=== PATIENT | male | born 1985 | race Caucasian/White ===

== ENCOUNTER 2016-04-05 16:15 | Emergency (ER) | payer SELFPAY ==
[2016-04-05 17:11] LABS: Hematocrit 51 % (42-52); Mean Corpuscular HGB Conc 34 g/dl (31-36); Mean Corpuscular Hemoglobin 30 pg (27-31); Mean Corpuscular Volume 90 fL (80-94); Mean Platelet Volume 9 um3 (7.4-10.4); Red Blood Count 5.63 10^6/ul (4.0-5.4); Red Cell Distribution Width 13 % (10.5-15); White Blood Count 6.7 10^3/ul (3.5-10.8)
[2016-04-05 17:24] LABS: Urine Bilirubin Negative (Negative); Urine Glucose Negative (Negative); Urine Nitrite Negative (Negative)
[2016-04-05 17:27] LABS: ALT 26 U/L (7-52); AST 21 U/L (13-39); Albumin 4.8 g/dL (3.2-5.2); Alkaline Phosphatase 65 U/L (34-104); Anion Gap 8 mmol/L (2-11); BUN/Creatinine Ratio 13.6 (8-20); Blood Urea Nitrogen 11 mg/dL (6-24); CO2 Carbon Dioxide 27 mmol/L (22-32); Calcium 9.9 mg/dL (8.6-10.3); Chloride 103 mmol/L (101-111); EGFR African American 143.9 (>60); EGFR Non-African American 111.9 (>60); Globulin 3.1 g/dL (2-4); Glucose 89 mg/dL (70-100); Potassium 3.5 mmol/L (3.5-5.0); Sodium 138 mmol/L (133-145); Total Protein 7.9 g/dL (6.4-8.9)
[2016-04-05 17:39] LABS: Acetaminophen < 15 mcg/mL; Alcohol < 10 mg/dL (<10); Salicylate < 2.50 mg/dL (<30)
[2016-04-05 17:39] LABS: Benzodiazepine Urine Screen None Detected (None Detect)
[2016-04-05 17:49] LABS: TSH (Thyroid Stimulating Horm) 1.33 mcIU/mL (0.34-5.60)
[2016-04-05 20:56] VITALS: BP 114/68
--- NOTE | 2016-04-06 12:47 | ED ---
I, Oh,Sobladeun, scribed for Xavier Liu MD on 04/05/16 at 1634 . Psychiatric Complaint - HPI Summary HPI Summary: This 30 y/o male presents to ED as 941 under police custody. Friend became concerned with his comment about "trouble getting out of bed" and how close he was to waterfall, and called law enforcement. Pt denies any SI or suicidal plan at the time of initial evaluation. Pt is current smoker and drinker. Pt also reports recent of father and that he has to greens picker the josé antonio of his father. Mother a year ago. Pt denies any known depression, and any other PMHx. - History Of Current Complaint Time Seen by Provider: 04/05/16 16:27 Hx Obtained From: Patient Onset/Duration: Gradual Onset Timing: Constant Severity Initially: Moderate Severity Currently: Moderate Character: Depressed Aggravating Factor(s): Recent Stress - father's recent Alleviating Factor(s): Nothing Associated Signs And Symptoms: Positive: Sleep Disturbance Related History: Negative For: Prior Psychiatric Issues Has Suicidal: Denies: Thoughts Has Homicidal: Denies: Thoughts PMH/Surg Hx/FS Hx/Imm Hx Previously Healthy: Yes - Pt denies any PMHx. - Family History Known Family History: Positive: Other - "my dad probably of broken heart" - Social History Alcohol Use: None Hx Substance Use: Yes Substance Use Type: Reports: Marijuana Hx Tobacco Use: No Smoking Status (MU): Never Smoked Tobacco Review of Systems Negative: Fever Positive: Depressed All Other Systems Reviewed And Are Negative: Yes Physical Exam - Summary Physical Exam Summary: VITAL SIGNS: Reviewed. GENERAL: Patient is a well developed and nourished male who is lying comfortable in the stretcher. Patient is not in any acute respiratory distress. HEAD AND FACE: No signs of trauma. No ecchymosis, hematomas or skull depressions. No sinus tenderness. EYES: PERRLA, EOMI x 2, No injected conjunctiva, no nystagmus. EARS: Hearing grossly intact. Ear canals and tympanic membranes are within normal limits. MOUTH: Oropharynx within normal limits. NECK: Supple, trachea is midline, no adenopathy, no JVD, no carotid bruit, no c- spine tenderness, neck with full ROM. CHEST: Symmetric, no tenderness at palpation LUNGS: Clear to auscultation bilaterally. No wheezing or crackles. CVS: Regular rate and rhythm, S1 and S2 present, no murmurs or gallops appreciated. ABDOMEN: Soft, non-tender. No signs of distention. No rebound no guarding, and no masses palpated. Bowel sounds are normal. EXTREMITIES: FROM in all major joints, no edema, no cyanosis or clubbing. NEURO: Alert and oriented x 3. No acute neurological deficits. Speech is normal and follows commands. SKIN: Dry and warm PSYCH: Depressed, quiet, denies any suicidal thoughts or plan. No homicidal thoughts or plan. No signs of psychosis or pressure speech. No tangential speech. Triage Information Reviewed: Yes Vital Signs On Initial Exam: Initial Vitals Temp Pulse Resp BP Pulse Ox 98.2 F 91 14 113/72 96 04/05/16 16:55 04/05/16 16:55 04/05/16 16:55 04/05/16 16:55 04/05/16 16:55 Vital Signs Reviewed: Yes Diagnostics - Vital Signs Vital Signs Temp Pulse Resp BP Pulse Ox 04/05/16 16:55 98.2 F 91 14 113/72 96 - Laboratory Result Diagrams: 04/05/16 14:50 04/05/16 14:50 Lab Statement: Any lab studies that have been ordered have been reviewed, and results considered in the medical decision making process. Course/Dx - Course Assessment/Plan: 30 y/o male here with police after a 941. She told her friend he has suicidal ideation but he denies here. He has hx of depression. Denies any Hx of SA. He has no other medical hx. Patient is medically cleared and he is awaiting for [facility]. Patient will signed out to Dr. De Jesus to f/u [facility] recommendations - Differential Dx/Clinical Impression Differential Diagnosis/HQI/PQRI: Positive: Acute Psychosis, Anxiety, Depression , Suicidal Ideation Provider Diagnosis: Suicidal ideation - Physician Notifications Discussed Care Of Patient With: [facility] Patient Is Medically Stable For: Psych Evaluation - at 1743 PM Discharge - Discharge Plan Condition: Stable Disposition: OTHER Discharge Disposition Comment: Signed out to Dr. De Jesus at shift change. Pending dispo from [facility]. Referrals: No Primary Care Phys,NOPCP [Primary Care Provider] - The documentation as recorded by the Keanu bryan Soohyun accurately reflects the service I personally performed and the decisions made by me, Xavier Liu MD.
--- NOTE | 2016-04-06 14:44 | CONSULT ---
Consult Consult: Mr. Simon presented after texting his girlfriend with suicidal thoughts. This has happened before and he now states that he has no intention of hurting himself. He was medically cleared and evaluated before my shift and I did not participate in his formal evaluation. He is stable and ready for D/C.
--- NOTE | 2016-04-26 04:05 | ED ---
Progress - Progress Note Progress Note: pt seen and cleared by crisis dx suicidal ideations d/c home stable - Consult/PCP Time Called: 20:55 Course/Dx - Diagnoses Provider Diagnoses: Suicidal ideation - Provider Notifications Discussed Care Of Patient With: NISHANT
== END 2016-04-06 15:27 ==
LOC: ED 16:15
DX: R45.851 Suicidal ideations (principal); G47.9 Sleep disorder, unspecified
CPT/HCPCS: 36415; 80053; 80307; 80320; 80329; 81003; 84443; 85025; 99285; G0480